=== PATIENT | female | born 1950 | race Hispanic/Latino ===

== ENCOUNTER 2017-05-30 12:36 | Outpatient (CLI) | payer OTHER ==
--- NOTE | 2017-05-30 13:40 | XRay Report ---
Left hand 3 views. History: Left hand pain. Findings: There are no fractures or other acute findings. Bony mineralization is normal. There is minimal joint space narrowing of the third through fifth PIP joints. Impression: Minimal arthritic changes as described. No acute findings are seen.
--- NOTE | 2017-05-30 13:43 | XRay Report ---
Left knee 3 views. History: Knee pain. Findings: Chondrocalcinosis is present at the articular margins. The joint space appears preserved. No subchondral cyst formation or other reactive changes are seen. There is mild diffuse osteopenia. Impression: Chondrocalcinosis most like related to early osteoarthritis. Hyperparathyroidism, ochronosis, and numerous additional conditions can also cause chondrocalcinosis.
== END 2017-05-30 12:37 | disposition home or self-care (01) ==
LOC: XRAY 12:36
PROVIDERS: ATTEND Internal Medicine Rheumatology
DX: M19.042 Primary osteoarthritis, left hand (principal); M85.862 Other specified disorders of bone density and structure, left lower leg; M85.861 Other specified disorders of bone density and structure, right lower leg; M11.262 Other chondrocalcinosis, left knee; M11.261 Other chondrocalcinosis, right knee